=== PATIENT | female | born 1995 | race Caucasian/White ===

== ENCOUNTER 2021-10-24 20:17 | Emergency (ER) | payer OTHER, SELFPAY ==
[2021-10-24 20:20] VITALS: BP 133/79; PULSE 106; RESP 18; TEMP 36.6; O2SAT 100; BMI 21.4
[2021-10-24 20:26] VITALS: PULSE 90; O2SAT 100
--- NOTE | 2021-10-24 20:27 | DI.CT.S_ITS ---
PROCEDURE: CT HEAD/BRAIN WO CON INDICATIONS: head injury and c spine tenderness TECHNIQUE: Noncontrast 4.5 mm thick angled axial sections acquired from the foramen magnum to the vertex, with coronal and sagittal reformats. For radiation dose reduction, the following was used: automated exposure control, adjustment of mA and/or kV according to patient size. COMPARISON: None. FINDINGS: Image quality: Excellent. CSF spaces: Basal cisterns are patent. No extra-axial fluid collections. Ventricles are normal in size and shape. Brain: No midline shift. No intracranial masses or hemorrhage. Hyde-white matter interface is normal. Skull and face: Calvarium and visualized facial bones are intact, without suspicious lesions. Sinuses: Visualized sinuses and mastoids are clear. IMPRESSION: No acute intracranial disease process. Dictated by: Halie Galvan MD, PhD on 10/24/2021 at 20:54 Approved by: Halie Galvan MD, PhD on 10/24/2021 at 20:57
--- NOTE | 2021-10-24 20:27 | DI.CT.S_ITS ---
PROCEDURE: CT CERVICAL SPINE WO CON INDICATIONS: head injury and c spine tenderness TECHNIQUE: Noncontrast 3 mm thick sections acquired from the skull base to the T4 level. Sagittal and coronal reformats were then constructed. For radiation dose reduction, the following was used: automated exposure control, adjustment of mA and/or kV according to patient size. COMPARISON: None. FINDINGS: Image quality: Excellent. Bones: No fractures or dislocations. Visualized superior ribs are intact. Soft tissues: Prevertebral soft tissues are normal in thickness. No paravertebral hematomas. No apical pneumothoraces. Enlargement of the bilateral palatine tonsils. IMPRESSION: 1. No fracture. No osseous lesion. If symptoms and/or clinical suspicion for pathology persists, evaluation with MRI should be considered for further assessment. 2. Enlarged palatine tonsils which could be due to inflammatory/infectious or neoplastic process. Recommend correlation with direct visualization. Dictated by: Halie Galvan MD, PhD on 10/24/2021 at 20:57 Approved by: Halie Galvan MD, PhD on 10/24/2021 at 21:01
[2021-10-24 20:30] VITALS: PULSE 105; O2SAT 100
--- NOTE | 2021-10-24 21:20 | ED_ITS ---
HPI - Head Injury General Chief complaint: Head Injury Stated complaint: MIGRAINE/BLIND SPOT Time Seen by Provider: 10/24/21 20:39 Source: patient Mode of arrival: Ambulatory Limitations: no limitations History of Present Illness HPI Narrative: This is a 26-year-old female comes emergency department after having a snowboarding accident yesterday. Patient was unhelmeted. She fell hitting her head. She remembers falling, she does not think she had a loss of consciousness but she did feel dazed afterwards. She had a mild headache immediately afterwards and continuing as well as some neck discomfort that has increased over the last day. She denies any numbness, tingling or weakness. No syncope or passing out. No chest pain or shortness of breath. No loss of bowel or bladder control. She is able to ambulate without issue. She has developed severe headache today and states she has a history of migraines. She will typically lose vision in her right eye sometimes in a certain area and her peripheral vision. This did occur today. She has had this happen on several occasions. She has tried sumatriptan and be but tell in the past with minimal help. She has been referred to see Neurology but is not established with a neurologist. She has not tried any oral or [id number]-pxc-[id number] medications otherwise. She states this does seem to be her typical pattern. She does have photophobia. She denies fevers, chills or other infectious type symptoms. She states she is otherwise healthy. Denies surgeries. No known drug allergies. No tobacco, she did have 2 alcoholic drinks daily, no illicit. Related Data Previous Rx's Medication Instructions Recorded diazepam 10 mg tablet (Valium) 10 mg PO TID PRN #10 tab 10/24/21 Allergies Allergy/AdvReac Type Severity Reaction Status Date / Time No Known Drug Allergies Allergy Verified 10/24/21 20:37 Review of Systems Review of Systems ROS Unobtainable: All systems reviewed & are unremarkable except as noted in HPI and below Patient History Social History Smoking Status: Never smoker Smoking Status: Never smoker alcohol intake frequency: a few times a week Substance Use Type: marijuana Exam Narrative Exam Narrative: GEN: well nourished, well appearing female, alert and oriented x 3, patient appears to be in mild distress. HEENT: Atraumatic, pupils are equal round reactive to light, extraocular movements are intact, nares are clear, TMs are clear with no fluid, there is no conjunctival pallor. Throat is clear without any exudates, erythema, tonsillar enlargement or uvular deviation, patient has some mild cervical tenderness over C4-5. She has moderate discomfort with flexion but is able to side bend and rotate with minimal discomfort. HEART: Regular rate and rhythm without murmur, clicks, rubs. LUNGS:Lungs clear to auscultation, no wheezes, rales, crackles, chest moves symmetrically ABD:bowel sounds normal, soft, non-tender, no guarding, rebound, rigidity, no masses noted, no hepatosplenomegaly :No CVA tenderness BACK: Patient has normal range of motion. Patient's gait is normal. Muscle strength is 5/5 in upper and lower extremities, DTRs are 2/4 upper and and lower extremities. 2+ pulses upper lower extremities. [place] are equal bilaterally. Normal sensation throughout all 4 extremities. MSCL: Non-tender, no muscle atrophy. full range of motion, normal gait NEURO:CN 2-12 intact, sensation normal. finger nose finger test normal, heel smart test normal, romberg normal Initial Vital Signs Initial Vital Signs: Vital Signs Temperature 97.9 F 10/24/21 20:20 Pulse Rate 106 H 10/24/21 20:20 Respiratory Rate 18 10/24/21 20:20 Blood Pressure 133/79 10/24/21 20:20 Pulse Oximetry 100 10/24/21 20:20 Scores GCS Ade coma scale eye opening: Spontaneous Ade coma scale verbal response: Orientated [place] coma scale motor response: Obey commands [place] coma scale total score: 15 Course Orders Ordered: Discontinued Medications Sodium Chloride (Normal Saline 0.9%) 1,000 mls @ 1,000 mls/hr IV BOLUS ONE Stop: 10/24/21 22:38 Last Infusion: 10/24/21 23:02 Dose: 0 mls/hr Documented by: Admin: 10/24/21 21:49 Dose: 1,000 mls/hr Documented by: MONIKA Ketorolac Tromethamine (Ketorolac 30 Mg/Ml Vial) 30 mg IV NOW ONE Stop: 10/24/21 21:40 Last Admin: 12/18/21 21:49 Dose: 30 mg Documented by: MONIKA Metoclopramide HCl (Metoclopramide 10 Mg/2 Ml Inj) 10 mg IV NOW ONE Stop: 10/24/21 21:40 Last Admin: 10/24/21 21:49 Dose: 10 mg Documented by: MONIKA Reevaluation(s) Reevaluation #1: Patient feels much better after medications. She would like to return home. Time: 23:39 Vital Signs Vital signs: Vital Signs - 8 hr 10/24/21 22:30 Pulse Rate 89 Blood Pressure 122/66 Pulse Oximetry 100 MDM - Head Injury Imaging Data CT scan - head: Radiologist's Impression: Teresa Hanson??26??F??1995 ? Allergy/Adv: No Known Drug Allergies Close Head CT (Signed) ColeHal[facility] - 10/24/[address] (Signed) Halie Galvan - 10/24/21 [place] [address] CT Scan Report Signed Patient: Teresa Hanson MR#: [id number] : 1995 Acct:[id number] Age/Sex: 26 / F Date of Service: 10/24/21 Loc: ED Accession Number: [id number] ?? Procedure: CT head/brain wo con Ordering Provider: Fatoumata Robledo D.O. PROCEDURE:? CT HEAD/BRAIN WO CON ? INDICATIONS:? head injury and c spine tenderness ? TECHNIQUE:? Noncontrast 4.5 mm thick angled axial sections acquired from the foramen magnum to the vertex, with coronal and sagittal reformats.? For radiation dose reduction, the following was used:? automated exposure control, adjustment of mA and/or kV according to patient size.? ? COMPARISON:? None. ? FINDINGS:? Image quality:? Excellent.? ? CSF spaces:? Basal cisterns are patent.? No extra-axial fluid collections.? Ventricles are normal in size and shape.? ? Brain:? No midline shift.? No intracranial masses or hemorrhage.? Hyde-white matter interface is normal.? ? Skull and face:? Calvarium and visualized facial bones are intact, without suspicious lesions.? ? Sinuses:? Visualized sinuses and mastoids are clear.? ? IMPRESSION:? No acute intracranial disease process. ? ? Dictated by: Halie Galvan MD, PhD on 10/24/2021 at 20:54 ? ? Approved by: Halie Galvan MD, PhD on 10/24/2021 at 20:57? CT - cervical spine: Radiologist's Impression: Teresa Hanson??26??F??1995 ? Allergy/Adv: No Known Drug Allergies Close Head CT (Signed) ColeHalie - 10/24/[address] (Signed) ColeHalie - 10/24/21 [place] [address] CT Scan Report Signed Patient: Teresa Hanson MR#: [id number] : 1995 Acct:[id number] Age/Sex: 26 / F Date of Service: 10/24/21 Loc: ED Accession Number: [id number] ?? Procedure: CT cervical spine wo con Ordering Provider: Fatoumata Robledo D.O. PROCEDURE:? CT CERVICAL SPINE WO CON ? INDICATIONS:? head injury and c spine tenderness ? TECHNIQUE:? Noncontrast 3 mm thick sections acquired from the skull base to the T4 level.? Sagittal and coronal reformats were then constructed.? For radiation dose reduction, the following was used:? automated exposure control, adjustment of mA and/or kV according to patient size.? ? COMPARISON:? None. ? FINDINGS:? Image quality:? Excellent.? ? Bones:? No fractures or dislocations.? Visualized superior ribs are intact.? ? Soft tissues:? Prevertebral soft tissues are normal in thickness.? No paravertebral hematomas.? No apical pneumothoraces.? Enlargement of the bilateral palatine tonsils.? ? ? IMPRESSION:? ? 1. No fracture.? No osseous lesion. If symptoms and/or clinical suspicion for pathology persists, evaluation with MRI should be considered for further assessment. ? 2. Enlarged palatine tonsils which could be due to inflammatory/infectious or neoplastic process.? Recommend correlation with direct visualization.? Dictated by: Halie Galvan MD, PhD on 10/24/2021 at 20:57 ? ? Approved by: Halie Galvan MD, PhD on 10/24/2021 at 21:01?? [facility] Narrative Medical decision making narrative: This is a 26-year-old female comes in with complaint of snowboarding accident yesterday. Patient has possible concussion. She developed a mild headache yesterday but has become quite uncomfortable today and had some vision loss. She describes this is typical for her when she has migraines. Suspect that her head injury yesterday exacerbated her migraine pattern. Patient states she was told by her primary care physician if she has vision changes that last more than 30 minutes she is to go to the hospital. She has had episodes of lasted up to 4 hours in the past. Patient has not taken anything for pain today. She does find the dark helpful. CT head and C-spine were obtained as patient does have some tenderness in the upper cervical region. These are both negative. Patient's exam and findings are reassuring otherwise. Plan for Toradol, fluids and Reglan and re-evaluation. She states her vision had already returned before any pain medications. Patient's neuro exam is negative. Discharge Plan Departure Patient Disposition: Home Clinical Impression: Closed head injury, Concussion, Cervical sprain Instructions: Concussion Activity Restrictions/Additional Instructions: Follow-up with your physician this week for recheck. You may advance your activity as tolerated. If physical exertion or certain activities worsen your symptoms please back down her activity level back to 1 that feels comfortable and then you may re-attempt increasing your activity level in the next 1-2 days. You may take Tylenol up to a 1000 mg every 8 hours and/or ibuprofen up to 800 mg every 8 hours. You may take muscle relaxer 1 tablet every 8 hours as needed. Prescription sent to [facility] in [place] Please return for new or worsening headaches, changes to your typical migraine pattern, fevers, passing out, new or different vision changes, persistent vomiting, new numbness, tingling or weakness, loss of bowel or bladder control or other new or concerning symptoms. Prescriptions: New diazepam [Valium] 10 mg tablet 10 mg PO TID PRN (Reason: muscle spasm) Qty: 10 0RF Stand Alone Forms: Work Release Note
[2021-10-24 21:31] VITALS: BP 122/76; PULSE 90; O2SAT 100
[2021-10-24] MEDS: METOCLOPRAMIDE 10 MG/2 ML INJ IV (21:49)
[2021-10-24] MEDS: KETOROLAC 30 MG/ML VIAL IV (21:49)
[2021-10-24] MEDS: SODIUM CHLORIDE 0.9% 1,000 ML 1000 ML IV (21:49)
[2021-10-24 22:00] VITALS: BP 121/72; PULSE 82; O2SAT 100
[2021-10-24 22:30] VITALS: BP 122/66; PULSE 89; O2SAT 100
== END 2021-10-24 23:46 | disposition home or self-care (01) ==
PROVIDERS: Emergency Provider Emergency Medicine
DX: S06.0X0A Concussion without loss of consciousness, initial encounter (principal); S13.4XXA Sprain of ligaments of cervical spine, initial encounter; W19.XXXA Unspecified fall, initial encounter; Y93.23 Activity, snow (alpine) (downhill) skiing, snowboarding, sledding, tobogganing and snow tubing
CPT/HCPCS: 70450; 72125; 96361; 96374; 96375; 99284; J1885; J2765

== ENCOUNTER 2021-10-29 21:46 | Emergency (ER) | payer OTHER, SELFPAY ==
--- NOTE | 2021-10-29 21:50 | ED.GENADULT ---
HPI - General Adult General Chief complaint: Eye Problems Stated complaint: vision changes Time Seen by Provider: 10/29/21 21:48 Source: patient Mode of arrival: Ambulatory History of Present Illness HPI narrative: Patient is a 26-year-old female. Several days ago was seen here in the emergency department approximately 24 hours after sustaining a closed head injury while snowboarding. Was diagnosed with a concussion. Today started having vision changes to both of her eyes. She has had migraines with aura us in the past that have included vision changes. She is not currently having a headache. No balance issues. Has not tried anything for the symptoms prior to arrival. Related Data Previous Rx's Medication Instructions Recorded diazepam 10 mg tablet (Valium) 10 mg PO TID PRN #10 tab 10/24/21 [id number]-kwdjistlxltsy-[id number] 1 cap PO Q4-6H PRN #14 cap 10/29/21 50 mg-300 mg-40 mg capsule (Fioricet) Allergies Allergy/AdvReac Type Severity Reaction Status Date / Time No Known Drug Allergies Allergy Verified 10/29/21 21:51 Review of Systems Constitutional Constitutional: Denies fever(s) and Denies headache(s) Eyes Eyes: Reports system reviewed and no additional complaints, except as documented, Reports blurry vision, Reports change in vision and Reports floaters ENT Ears, Nose, Mouth, and Throat: Denies vertigo, Denies dizziness and Denies headache(s) Cardiovascular Cardiovascular: Denies chest pain and Denies dyspnea Respiratory Respiratory: Denies dyspnea Gastrointestinal Gastrointestinal: Denies nausea Musculoskeletal Musculoskeletal: Denies tingling Neurologic Neurologic: Denies vertigo, Denies dizziness, Denies headache(s) and Denies tingling Hematologic/Lymphatic Hematologic/Lymphatic: Reports system reviewed and no additional complaints, except as documented Patient History Medical History Concussion Social History Smoking Status: Never smoker Smoking Status: Never smoker alcohol intake frequency: a few times a week Substance Use Type: marijuana Exam Initial Vital Signs Initial Vital Signs: Vital Signs Temperature 97.7 F 10/29/21 21:51 Pulse Rate 77 10/29/21 21:51 Respiratory Rate 16 10/29/21 21:51 Blood Pressure 118/70 10/29/21 21:51 Pulse Oximetry 100 12/23/21 21:51 Const General: cooperative, healthy appearing, comfortable and well developed [facility] Head: normal to inspection and normocephalic Eyes General: appearance normal, both eyes and all related structures Periorbital: periorbital findings normal Pupils: PERRL EOM: EOM intact bilaterally Resp Effort & Inspection: normal respiratory effort Auscultation: clear to auscultation bilaterally Cardio Rate: regular rate Rhythm: regular rhythm Skin General: no rashes or lesions noted Neuro General: patient alert, patient awake, patient oriented x3, gait normal and moves all extremities Cranial Nerves: CN's II-XI intact bilaterally Speech: speech normal Gait: normal gait Motor: muscle tone normal throughout Sensory Exam: no sensory deficits noted Extrem General: normal to inspection and capillary refill normal Psych Appearance: grossly normal and well kempt Course Orders Ordered: Discontinued Medications Diphenhydramine HCl (Diphenhydramine 50 Mg/Ml Vial) 25 mg IV NOW ONE Stop: 10/29/21 21:59 Last Admin: 10/29/21 22:11 Dose: 25 mg Documented by: MONIKA Sodium Chloride (Normal Saline 0.9%) 1,000 mls @ 1,000 mls/hr IV BOLUS ONE Stop: 10/29/21 22:57 Last Infusion: 10/29/21 23:24 Dose: 0 mls/hr Documented by: Admin: 10/29/21 22:10 Dose: 1,000 mls/hr Documented by: MONIKA Ketorolac Tromethamine (Ketorolac 30 Mg/Ml Vial) 30 mg IV NOW ONE Stop: 10/29/21 21:59 Last Admin: 10/29/21 22:10 Dose: 30 mg Documented by: MONIKA Metoclopramide HCl (Metoclopramide 10 Mg/2 Ml Inj) 10 mg IV NOW ONE Stop: 10/29/21 21:59 Last Admin: 10/29/21 22:10 Dose: 10 mg Documented by: MONIKA Vital Signs Vital signs: Vital Signs - 8 hr 10/29/21 21:51 10/29/21 23:30 Temperature 97.7 F Pulse Rate 77 81 Respiratory Rate 16 16 Blood Pressure 118/70 104/63 Pulse Oximetry 100 100 Medical Decision Making MDM Narrative Medical decision making narrative: Patient had a complete resolution of symptoms after treatments here in the emergency department. I do suspect that the vision changes today were an aura associated with beginnings of a migraine although she did deny a headache. She states that Fioricet has worked for her in the past with headaches. I suspect that the closed-head injury that she sustained couple days ago may have triggered an increase in her migraine symptoms. I feel that we can hold on a CT scan. She had a CT scan performed at the prior visit. She was given return precautions and follow-up instructions. She expressed understanding and agreement. Discharge Plan Departure Patient Disposition: Home Clinical Impression: Vision disturbance, Migraine aura without headache Instructions: DI for Migraine Activity Restrictions/Additional Instructions: I suspect that the head injury that she sustained a couple days ago has cause you to have an increase in your migraine headaches. A prescription for Fioricet was transmitted to [facility]. Take it as directed. Contact your medical department for a follow-up. Return to the emergency department for any new or worsening symptoms Prescriptions: New fkqzlvizcb-qtmxxhaiqaahp-vsgt [Fioricet] 50-300-40 mg capsule 1 cap PO Q4-6H PRN (Reason: pain) Qty: 14 0RF No Action diazepam [Valium] 10 mg tablet 10 mg PO TID PRN (Reason: muscle spasm) Qty: 10 0RF
[2021-10-29 21:51] VITALS: BP 118/70; PULSE 77; RESP 16; TEMP 36.5; O2SAT 100; BMI 21.4
[2021-10-29] MEDS: METOCLOPRAMIDE 10 MG/2 ML INJ IV (22:10)
[2021-10-29] MEDS: KETOROLAC 30 MG/ML VIAL IV (22:10)
[2021-10-29] MEDS: SODIUM CHLORIDE 0.9% 1,000 ML 1000 ML IV (22:10)
[2021-10-29] MEDS: diphenhydrAMINE 50 MG/ML VIAL 25 MG IV (22:11)
[2021-10-29 23:30] VITALS: BP 104/63; PULSE 81; RESP 16; O2SAT 100
--- NOTE | 2021-11-09 09:15 | PC.NURSE ---
Pt called because she is in [place] and did not parts picker controlled substance after visit 10/29. Asked for new prescription. Unable to do so r/t controlled substance as well as distance from original visit. Encouraged to f/u as needed and indicated.
== END 2021-10-29 23:35 | disposition home or self-care (01) ==
PROVIDERS: Emergency Provider Emergency Medicine
DX: H53.8 Other visual disturbances (principal); G43.109 Migraine with aura, not intractable, without status migrainosus
CPT/HCPCS: 96361; 96374; 96375; 99283; 99284; J1200; J1885; J2765

== ENCOUNTER 2024-01-06 16:34 | Emergency (ER) | payer OTHER, SELFPAY ==
[2024-01-06 16:36] VITALS: BP 112/71; PULSE 90; RESP 18; TEMP 36.6; O2SAT 100; BMI 20.5
--- NOTE | 2024-01-06 16:48 | ED_ITS ---
<Statement entered by Loc Keating MD - 01/06/24 18:30> I was available for consultation for this patient while they were in the ER but not consulted. My review of this note is my first interaction with this patient's chart. HPI - Headache General Chief Complaint: Headache Stated Complaint: headache Time Seen by Provider: 01/06/24 16:45 Mode of arrival: Ambulatory History of Present Illness HPI Narrative: This is a 28-year-old female presenting to the emergency department due to a worsening migraine. History of migraines. Denies any auras with the current migraine. States that she felt it come on around noon today. Reports mild nausea. Denies any slurred speech, facial drooping, weakness, or any other concerning signs or symptoms. States that she was not like taking pain medications has not taken anything for the pain. Related Data Previous Rx's Medication Instructions Recorded diazepam 10 mg tablet (Valium) 10 mg PO TID PRN muscle spasm #10 10/24/21 tabs [id number]-jyhfsvwhapkro-ybnlbjho 1 cap PO Q4-6H PRN pain #14 caps 10/29/21 50 mg-300 mg-40 mg capsule (Fioricet) sumatriptan succinate 25 mg tablet See Rx Instructions PO .COMPLEX 01/06/24 #20 tabs Allergies Allergy/AdvReac Type Severity Reaction Status Date / Time No Known Drug Allergies Allergy Verified 10/29/21 21:51 Review of Systems Review of Systems Narrative: GENERAL: Denies chills, fatigue, malaise, fever, sweats. HEENT: Reports headache, Denies sinus pain, ear pain, sore throat, difficulty swallowing, dizziness. RESPIRATORY: Denies dyspnea, cough, wheezing, hemoptysis, sputum. CARDIOVASCULAR: Denies chest pain, palpitations, orthopnea, edema, GASTROINTESTINAL: Denies nausea, vomiting, abdominal pain, diarrhea, constipation, melena. : Denies dysuria, frequency, incontinence, hematuria, urinary retention. MUSCULOSKELETAL: denies weakness, joint pain, or bony pain SKIN: Denies rash, skin lesions, or other NEUROLOGIC: Denies weakness, headache, numbness, change in speech, confusion, seizures, incoordination. PSYCHIATRIC: No concerning psychosocial issues. 12 point review of systems is negative except for those stated above Patient History Medical History Concussion Social History Smoking Status: Never smoker Smoking Status: Never smoker alcohol intake frequency: a few times a month Substance Use Type: does not use Exam Narrative Exam Narrative: GENERAL: Well-developed patient, in mild distress. HEAD: Atraumatic. Normocephalic. EYES: Pupils equal round and reactive. Extraocular motions intact. No scleral icterus. No injection or drainage. ENT: Nose without bleeding, purulent drainage. Throat without erythema, tonsillar hypertrophy or exudate. Airway patent. NECK: Trachea midline. Non tender EXTREMITIES: No edema or joint tenderness. NEURO: AOx3. Cranial nerves 2-12 intact SKIN: No rash or erythema of visible areas Initial Vital Signs Initial Vital Signs: Vital Signs Temperature 98 F 01/06/24 16:36 Pulse Rate 90 01/06/24 16:36 Respiratory Rate 18 01/06/24 16:36 Blood Pressure 112/71 01/06/24 16:36 Pulse Oximetry 100 01/06/24 16:36 Oxygen Delivery Method Room Air 01/06/24 16:36 Course Orders Ordered: Discontinued Medications Dexamethasone (Dexamethasone 10 Mg/Ml Vial) 10 mg IV NOW ONE Stop: 01/06/24 17:09 Last Admin: 01/06/24 17:37 Dose: 10 mg Documented By: RB Diphenhydramine HCl (Diphenhydramine 50 Mg/Ml Vial) 25 mg IV NOW ONE Stop: 01/06/24 17:09 Last Admin: 01/06/24 17:37 Dose: 25 mg Documented By: RB Sodium Chloride (Normal Saline 0.9%) 1,000 mls @ 1,000 mls/hr IV BOLUS ONE Stop: 01/06/24 18:07 Last Admin: 01/06/24 17:36 Dose: 1,000 mls/hr Documented By: RB Ketorolac Tromethamine (Ketorolac 30 Mg/Ml Vial) 15 mg IV NOW ONE Stop: 01/06/24 17:09 Last Admin: 01/06/24 17:36 Dose: 15 mg Documented By: PEDRO Ondansetron HCl (Ondansetron 4 Mg Odt) 4 mg SL NOW ONE Stop: 01/06/24 16:57 Last Admin: 01/06/24 16:58 Dose: 4 mg Documented By: RB Prochlorperazine (Prochlorperazine 10 Mg/2 Ml Vial) 10 mg IV NOW ONE Stop: 01/06/24 17:09 Last Admin: 01/06/24 17:50 Dose: 10 mg Documented By: PEDRO Vital Signs Vital signs: Vital Signs - 8 hr 01/06/24 16:36 01/06/24 17:48 01/06/24 17:50 Temperature 98 F Pulse Rate 90 72 77 Respiratory Rate 18 20 Blood Pressure 112/71 107/55 L 112/60 Pulse Oximetry 100 100 Oxygen Delivery Method Room Air Room Air MDM - Headache MDM Narrative Medical decision making narrative: ED course: This is a 28-year-old female presents emergency department due to migraine. She has a history of these in the past. Neuro exam reassuring. Given a migraine cocktail which helped him feel much better. We will be discharged. CC: Headache Complicating co-morbidities: History of migraines Data collected from: Previous notes Medical records reviewed: Patient was seen roughly 2 years ago due to a migraine. Was having vision changes in the history of migraines with auras. Patient was given Benadryl, normal saline, Toradol, Reglan. Differential considered, but not limited to: Hemorrhagic stroke, ischemic stroke, migraine, sinusitis Exam documented above, pertinent findings include: Reassuring neuro exam Lab Test results independently reviewed as above. Pertinent findings: None obtained Imaging studies independently reviewed: None obtained Scores Used: None MIPS Elements: None Consultations: None Treatments: Normal saline, Toradol, prochlorperazine, Decadron Re-evaluations: Patient felt much better after migraine cocktail Discussion: Discussed plan with the patient was comfortable with the plan Diagnosis: Migraine Disposition: see below, along with detailed discharge instructions that have been reviewed with patient as well as indications for ED re-evaluation and additional outpatient follow up Discharge Plan Departure Patient Disposition: Home Clinical Impression: Migraine Instructions: DI for Headache Activity Restrictions/Additional Instructions: Thank you for coming to the [facility] Emergency Department today. I am glad you are feeling better. I have prescribed you additional sumatriptan for you to take if take your migraines return. Please return to the emergency department if you develop any slurred speech, vomiting, weakness, or any other concerning signs or symptoms. I hope you feel better soon. Please follow up with your primary care provider within a week if your symptoms continue. If you do not have a primary care provider please contact the [facility] Resource line at [phone]. They will ask some questions about your medical history and help you get set up with a provider in the community. Prescriptions: New sumatriptan succinate 25 mg tablet See Rx Instructions .ROUTE .COMPLEX Qty: 20 0RF Rx Instructions: take 1 tab at onset of headache; if no relief may repeat 1 tab after at least 2 hrs; max = 4 tabs/24 hr No Action diazepam [Valium] 10 mg tablet 10 mg PO TID PRN (Reason: muscle spasm) Qty: 10 0RF [id number]-dcknqszezxyte-zdrf [Fioricet] 50-300-40 mg capsule 1 cap PO Q4-6H PRN (Reason: pain) Qty: 14 0RF Referrals: ProviderNancy [Primary Care Provider] - Stand Alone Forms: Patient Portal/API
[2024-01-06] MEDS: ONDANSETRON 4 MG ODT SL (16:58)
[2024-01-06] MEDS: SODIUM CHLORIDE 0.9% 1,000 ML 1000 ML IV (17:36)
[2024-01-06] MEDS: KETOROLAC 30 MG/ML VIAL 15 MG IV (17:36)
[2024-01-06] MEDS: diphenhydrAMINE 50 MG/ML VIAL 25 MG IV (17:37)
[2024-01-06] MEDS: DEXAMETHASONE 10 MG/ML VIAL IV (17:37)
[2024-01-06 17:48] VITALS: BP 107/55; PULSE 72; RESP 20; O2SAT 100
[2024-01-06 17:50] VITALS: BP 112/60; PULSE 77
[2024-01-06] MEDS: PROCHLORPERAZINE 10 MG/2 ML VIAL IV (17:50)
[2024-01-06 18:29] VITALS: BP 99/56; PULSE 88; RESP 18; TEMP 36.8; O2SAT 100
== END 2024-01-06 18:31 | disposition home or self-care (01) ==
PROVIDERS: Emergency Provider Physician Assistant Medical
DX: G43.909 Migraine, unspecified, not intractable, without status migrainosus (principal)
CPT/HCPCS: 36415; 96361; 96374; 96375; 99284; J0780; J1100; J1200; J1885